=== PATIENT | male | born 1965 | race Caucasian/White ===

== ENCOUNTER 2023-08-16 11:26 | Emergency (ER) | payer OTHER ==
[~2023-08-16] VITALS: Ht 180.3 cm; Wt 68.0 kg
[2023-08-16 11:35] VITALS: BP 136/86; TEMP 98.1
[2023-08-16] MEDS ORDERED: CEPHALEXIN MONOHYDRATE 500 MG CAPSULE PO ONE (11:52)
[2023-08-16] MEDS: CEPHALEXIN MONOHYDRATE 500 MG CAPSULE PO ONE (11:59)
[2023-08-16] MEDS ORDERED: CEPH500C2 PO (12:36)
[2023-08-16 12:41] VITALS: O2SAT 100
== END 2023-08-16 12:42 | disposition home or self-care (01) ==
LOC: ER 11:45
DX: N48.1 Balanitis (principal); E11.9 Type 2 diabetes mellitus without complications

== ENCOUNTER 2023-09-18 10:13 | Inpatient (IN) | payer OTHER ==
[~2023-09-18] VITALS: Ht 180.3 cm; Wt 66.5 kg
[~2023-09-18 10:13] MED LIST: CEPH500C2 PO
[2023-09-18 11:08] LABS: LYMPHOCYTES # (AUTO) 1.2 K/uL (0.8-4.8); MONOCYTES # (AUTO) 0.4 K/uL (0.1-1.30); PLATELET COUNT (AUTO) 131 K/uL (150-450); RED BLOOD CELL COUNT(AUTO) 5.31 MIL/uL (4.5-6.0)
[2023-09-18 11:11] LABS: BASOPHILS # (AUTO) 0.1 K/uL (0.0-0.2); BASOPHILS % (AUTO) 1.1 % (0.0-2.0); EOSINOPHILS % (AUTO) 0.3 % (0.0-6.0); HEMATOCRIT 35 % (39-51); HEMOGLOBIN 10.6 g/dL (13.5-17.5); MEAN CORPUSCULAR HEMOGLOBIN 20 PG (26.0-33.0); MEAN CORPUSCULAR HGB CONC 30 g/dl (31.0-36.0); MEAN CORPUSCULAR VOLUME 65 fL (80-96); MONOCYTES % (AUTO) 8.2 % (2.0-12.0); NEUTROPHILS # (AUTO) 3.1 K/uL (1.8-8.9); NEUTROPHILS % (AUTO) 65.4 % (43.0-81.0); RED CELL DISTRIBUTION WIDTH 15.8 % (11.5-15.0); WHITE BLOOD COUNT (AUTO) 4.7 K/uL (4.3-11.0)
[2023-09-18 11:21] LABS: INR 1.03 (0.91-1.10); PARTIAL THROMBOPLASTIN TIME 20.9 SEC (24.3-34.3); PROTHROMBIN TIME 10.6 SECS (9.2-11.1)
[2023-09-18 11:36] LABS: ALANINE AMINOTRANSFERASE 51 U/L (12-78); ALBUMIN 3.4 g/dL (3.4-5.0); ALKALINE PHOSPHATASE 76 U/L (46-116); ASPARTATE AMINOTRANSFERASE 17 U/L (15-37); BILIRUBIN,DIRECT 0.2 mg/dL (0.0-0.2); BILIRUBIN,TOTAL 0.8 mg/dL (0.2-1.0); CALCIUM, SERUM 8.8 mg/dL (8.5-10.1); CARBON DIOXIDE 24 mmol/L (21-32); CHLORIDE 95 mmol/L (98-107); CREATININE 2.4 mg/dL (0.6-1.3); POTASSIUM 5.6 mmol/L (3.5-5.1); SODIUM SERUM 126 mmol/L (136-145); TOTAL PROTEIN, SERUM 8.4 g/dL (6.4-8.2); UREA NITROGEN, BLOOD 45 mg/dL (7-18)
[2023-09-18] MEDS ORDERED: TRULICITY SQ (11:36)
[2023-09-18] MEDS ORDERED: BICT1TAB PO (11:36)
[2023-09-18] MEDS ORDERED: LISI20TA30 PO (11:36)
[2023-09-18] MEDS ORDERED: ATOR40TA PO (11:36)
[2023-09-18] MEDS ORDERED: ASPI-1420 PO (11:36)
[2023-09-18] MEDS ORDERED: INSU100I30 SQ (11:36)
[2023-09-18 11:37] LABS: GLUCOSE 493 mg/dL (74-106)
[2023-09-18] MEDS ORDERED: CEFTRIAXONE 1GM BAG (ER ONLY) 50 ML IV ONE (11:51)
[2023-09-18] MEDS: CEFTRIAXONE 1GM BAG (ER ONLY) 50 ML IV ONE (12:27)
[2023-09-18] MEDS: IV NS 0.9% 1,000 ML BAG IV ONE (12:27)
[2023-09-18] MEDS ORDERED: DEXTROSE 50%-WATER 50 ML DISP.SYRIN IV PRN (12:30)
[2023-09-18] MEDS ORDERED: ACETAMINOPHEN 325 MG TABLET PO PRN (12:30)
[2023-09-18] MEDS ORDERED: MAG HYDROX/AL HYDROX/SIMETH 30 ML UDC PO PRN (12:30)
[2023-09-18] MEDS ORDERED: Z GUARD REMEDY 4 OZ OINT TP PRN (12:30)
[2023-09-18] MEDS ORDERED: MAGNESIUM HYDROXIDE 30 ML UDC PO PRN (12:30)
[2023-09-18] MEDS ORDERED: ZOLPIDEM TARTRATE 5 MG TABLET PO PRN (12:30)
[2023-09-18] MEDS ORDERED: ONDANSETRON HCL/PF 4 MG/2 ML VIAL IVP PRN (12:30)
[2023-09-18] MEDS: INSULIN REGULAR, HUMAN 100 UNIT/ML 10 ML VIAL IV ONE (12:50)
[2023-09-18] MEDS ORDERED: INSULIN REGULAR, HUMAN 100 UNIT/ML 10 ML VIAL ONE (12:53)
[2023-09-18 13:24] VITALS: BP 144/89; TEMP 98.9; O2SAT 100
[2023-09-18 13:42] LABS: LYMPHOCYTES % (MANUAL) 24 % (16-48); MONOCYTES % (MANUAL) 9 % (0-11.0); NEUTROPHILS % (MANUAL) 67 (42-76); PLATELET ESTIMATE DECREASED
[2023-09-18 16:55] LABS: CALCIUM, SERUM 8.3 mg/dL (8.5-10.1); POTASSIUM 4.9 mmol/L (3.5-5.1)
[2023-09-18] MEDS: INSULIN REGULAR, HUMAN 100 UNIT/ML 3 ML VIAL SQ PRN (17:17)
[2023-09-18] MEDS: BLOOD SUGAR DIAGNOSTIC 1 EACH STRIP IN SCH (17:36)
[2023-09-18 20:00] VITALS: BP 128/73; TEMP 99.1; O2SAT 98
[2023-09-18] MEDS: HEPARIN SODIUM, PORCINE 5000 UNITS/1 ML VIAL SQ SCH (21:46)
[2023-09-18] MEDS: IV 1/2NS 1000 ML 1,000 ML IV PRN (22:32)
[2023-09-19 05:13] LABS: *BASOS 1 % (Not Estab.); *EOS 0 % (Not Estab.); *HCT 34.1 % (37.5-51.0); *HGB 10.2 g/dL (13.0-17.7); *IMMATURE GRANULOCYTES 0 % (Not Estab.); *LYMPHOCYTES 33 % (Not Estab.); *LYMPHS, ABSOLUTE 1.6 x10E3/uL (0.7-3.1); *MCH 20.7 pg (26.6-33.0); *MCHC 29.9 g/dL (31.5-35.7); *MCV 69 fL (79-97); *MONOCYTES 10 % (Not Estab.); *MONOS, ABSOLUTE 0.5 x10E3/uL (0.1-0.9); *NEUTROPHILS 56 % (Not Estab.); *NEUTROPHILS, ABSOLUTE 2.8 x10E3/uL (1.4-7.0); *PLT 124 x10E3/uL (150-450); *RBC 4.92 x10E6/uL (4.14-5.80); *RDW 15.5 % (11.6-15.4); *WBC 4.9 x10E3/uL (3.4-10.8)
[2023-09-19 07:00] VITALS: BP 114/66; TEMP 97.9; O2SAT 100
[2023-09-19 07:31] LABS: BASOPHILS # (AUTO) 0.1 K/uL (0.0-0.2); BASOPHILS % (AUTO) 1.1 % (0.0-2.0); EOSINOPHILS % (AUTO) 0.8 % (0.0-6.0); HEMATOCRIT 29 % (39-51); HEMOGLOBIN 9.3 g/dL (13.5-17.5); LYMPHOCYTES # (AUTO) 2.2 K/uL (0.8-4.8); LYMPHOCYTES % (AUTO) 48.2 % (20.0-44.0); MEAN CORPUSCULAR HEMOGLOBIN 20 PG (26.0-33.0); MEAN CORPUSCULAR HGB CONC 32 g/dl (31.0-36.0); MEAN CORPUSCULAR VOLUME 65 fL (80-96); MONOCYTES # (AUTO) 0.5 K/uL (0.1-1.30); MONOCYTES % (AUTO) 9.9 % (2.0-12.0); NEUTROPHILS # (AUTO) 1.8 K/uL (1.8-8.9); PLATELET COUNT (AUTO) 114 K/uL (150-450); RED BLOOD CELL COUNT(AUTO) 4.54 MIL/uL (4.5-6.0); RED CELL DISTRIBUTION WIDTH 15.5 % (11.5-15.0); WHITE BLOOD COUNT (AUTO) 4.5 K/uL (4.3-11.0)
[2023-09-19 07:57] LABS: ALBUMIN 2.5 g/dL (3.4-5.0); BILIRUBIN,TOTAL 0.6 mg/dL (0.2-1.0); CALCIUM, SERUM 7.9 mg/dL (8.5-10.1); CREATININE 1.5 mg/dL (0.6-1.3); MAGNESIUM 2.1 mg/dL (1.8-2.4); PHOSPHORUS 3.4 mg/dL (2.5-4.9); POTASSIUM 5.1 mmol/L (3.5-5.1); TOTAL PROTEIN, SERUM 6.8 g/dL (6.4-8.2)
[2023-09-19 08:08] LABS: THYROID STIMULATING HORMONE 0.898 uIU/mL (0.358-3.74)
[2023-09-19 08:16] LABS: CREATININE, URINE 131.2 MG/DL (30.0-125.0)
[2023-09-19] MEDS: LISINOPRIL (20MG) 20 MG TABLET PO SCH (09:58)
[2023-09-19] MEDS: PANTOPRAZOLE 40 MG VIAL IV SCH (09:58)
[2023-09-19] MEDS: ATORVASTATIN 40 MG TABLET PO SCH (09:58)
[2023-09-19] MEDS: ASPIRIN EC 81 MG TABLET.DR PO SCH (09:59)
[2023-09-19] MEDS: INSULIN GLARGINE, 100 UNIT/ML CARTRIDGE SQ SCH (10:01)
[2023-09-19 12:10] LABS: *% CD 4 POS. LYMPH 17.5 % (30.8-58.5); *% CD 8 POS. LYMPH 48.4 % (12.0-35.5); *ABSOLUTE CD 4 HELPER 280 /uL (359-1519); *ABSOLUTE CD 8 SUPPRESSOR 774 /uL (109-897); *CD4/CD8 RATIO 0.36 (0.92-3.72)
[2023-09-19] MEDS: IV NS 0.9% 1,000 ML IV ONE (14:18)
[2023-09-19 16:00] VITALS: BP 131/79; TEMP 98.4; O2SAT 99
[2023-09-19 16:11] LABS: EOSINOPHILS % (MANUAL) 1 % (0-4); LYMPHOCYTES % (MANUAL) 49 % (16-48); MONOCYTES % (MANUAL) 9 % (0-11.0); NEUTROPHILS % (MANUAL) 41 (42-76); PLATELET ESTIMATE DECREASED
[2023-09-19 16:12] LABS: ANISOCYTOSIS 1+
[2023-09-19 20:37] VITALS: BP 108/66; TEMP 96.8; O2SAT 100
[2023-09-19 20:37] LABS: APPEARANCE,URINE CLEAR (CLEAR); BILIRUBIN,URINE NEGATIVE (NEGATIVE); BLOOD, URINE TRACE-INTA Ery/uL (NEGATIVE); COLOR,URINE YELLOW (YELLOW); KETONES,URINE NEGATIVE (NEGATIVE); LEUKOCYTE ESTERASE ,URINE NEGATIVE (NEGATIVE); NITRITE, URINE NEGATIVE (NEGATIVE); PROTEIN,URINE TRACE mg/dl (NEGATIVE); UGLUCOSE 3+ mg/dL (NEGATIVE); UROBILINOGEN,URINE 0.2 EU/dL (0.2)
[2023-09-19 20:40] LABS: URINE TOTAL PROTEIN 29.5 mg/dL (0-11.9)
[2023-09-19 21:00] LABS: ADD URINE CULTURE NO; BACTERIA,URINE None seen /HPF (None Seen); RBC,URINE 0-2 /HPF (0-2); SQUAMOUS EPITHELIAL CELL,UR Few /HPF (None Seen); WBC,URINE NONE SEEN /HPF (0-3)
[2023-09-19 21:21] LABS: EOSINOPHIL,URINE None Seen; YEAST,URINE Few /HPF (None Seen)
[2023-09-20 07:00] VITALS: BP 137/85; TEMP 97.4; O2SAT 100
[2023-09-20 07:29] LABS: BASOPHILS # (AUTO) 0.1 K/uL (0.0-0.2); BASOPHILS % (AUTO) 1.3 % (0.0-2.0); EOSINOPHILS % (AUTO) 0.9 % (0.0-6.0); HEMATOCRIT 28 % (39-51); HEMOGLOBIN 8.9 g/dL (13.5-17.5); LYMPHOCYTES % (AUTO) 49.8 % (20.0-44.0); MEAN CORPUSCULAR HEMOGLOBIN 21 PG (26.0-33.0); MEAN CORPUSCULAR HGB CONC 32 g/dl (31.0-36.0); MEAN CORPUSCULAR VOLUME 65 fL (80-96); MONOCYTES # (AUTO) 0.5 K/uL (0.1-1.30); MONOCYTES % (AUTO) 11.9 % (2.0-12.0); NEUTROPHILS # (AUTO) 1.5 K/uL (1.8-8.9); NEUTROPHILS % (AUTO) 36.1 % (43.0-81.0); PLATELET COUNT (AUTO) 107 K/uL (150-450); RED BLOOD CELL COUNT(AUTO) 4.35 MIL/uL (4.5-6.0); RED CELL DISTRIBUTION WIDTH 15.6 % (11.5-15.0); WHITE BLOOD COUNT (AUTO) 4.1 K/uL (4.3-11.0)
[2023-09-20 08:48] LABS: ALBUMIN 2.5 g/dL (3.4-5.0); BILIRUBIN,TOTAL 0.5 mg/dL (0.2-1.0); CALCIUM, SERUM 7.6 mg/dL (8.5-10.1); CREATININE 1.3 mg/dL (0.6-1.3); POTASSIUM 4.3 mmol/L (3.5-5.1); TOTAL PROTEIN, SERUM 6.5 g/dL (6.4-8.2)
[2023-09-20] MEDS: PANTOPRAZOLE 40 MG TABLET.DR PO SCH (08:51)
[2023-09-21 08:10] LABS: PTH, INTACT 33 pg/mL (15-65)
[2023-09-21 10:08] LABS: *SPE A/G RATIO 0.9 (0.7-1.7); *SPE ALBUMIN 2.8 g/dL (2.9-4.4); *SPE ALPHA-1-GLOBULIN 0.2 g/dL (0.0-0.4); *SPE ALPHA-2-GLOBULIN 0.6 g/dL (0.4-1.0); *SPE BETA GLOBULIN 0.8 g/dL (0.7-1.3); *SPE GLOBULIN, TOTAL 3.2 g/dL (2.2-3.9); *SPE M-SPIKE 0.2 g/dL (Not Observed); *SPEGAMMA GLOBULIN 1.6 g/dL (0.4-1.8)
== END 2023-09-20 13:00 | disposition home or self-care (01) | DRG 469 ==
LOC: ER 10:13 → MED 13:08
PROVIDERS: ADMIT Nurse Practitioner Acute Care; ATTEND Nurse Practitioner Acute Care
DX: N17.0 Acute kidney failure with tubular necrosis (principal); R62.7 Adult failure to thrive; D64.9 Anemia, unspecified; E11.65 Type 2 diabetes mellitus with hyperglycemia; E87.5 Hyperkalemia; M89.8X9 Other specified disorders of bone, unspecified site; Z79.4 Long term (current) use of insulin; Z79.899 Other long term (current) drug therapy; Z68.20 Body mass index [BMI] 20.0-20.9, adult; R53.1 Weakness
CPT/HCPCS: 36415; 71045-TC; 76770-TC; 80048-TC; 80053-TC; 80061-TC; 80076-TC; 81001; 82550-TC; 82570-TC; 82962-TC; 83540-TC; 83605-TC; 83735-TC; 83935-TC; 83970; 84100-TC; 84155; 84165; 84300-TC; 84443-TC; 84484-TC; 85025-TC; 85730-TC; 86360; 87040-TC; 87086-TC; 97110-TC; 97116-TC; 97530-TC; A4223; C9113; G0378; J0696; J1644; J1815; J3490; J7030

== ENCOUNTER 2024-01-10 09:37 | Emergency (ER) | payer OTHER ==
[~2024-01-10] VITALS: Ht 180.3 cm; Wt 63.5 kg
[~2024-01-10 09:37] MED LIST changes: +ASPI-1420 PO; +ATOR40TA PO; +BICT1TAB PO; -CEPH500C2 PO; +INSU100I30 SQ; +LISI20TA30 PO; +TRULICITY SQ
[2024-01-10] MEDS ORDERED: INSULIN REGULAR, HUMAN 100 UNIT/ML 10 ML VIAL ONE (09:57)
[2024-01-10] MEDS: IV NS 0.9% 1,000 ML BAG IV ONE (09:59)
[2024-01-10] MEDS: INSULIN REGULAR, HUMAN 100 UNIT/ML 10 ML VIAL SQ ONE (10:02)
[2024-01-10 10:08] LABS: BASOPHILS % (AUTO) 0.7 % (0.0-2.0); EOSINOPHILS % (AUTO) 0.6 % (0.0-6.0); HEMATOCRIT 32 % (39-51); HEMOGLOBIN 9.8 g/dL (13.5-17.5); LYMPHOCYTES # (AUTO) 1.6 K/uL (0.8-4.8); LYMPHOCYTES % (AUTO) 36.3 % (20.0-44.0); MEAN CORPUSCULAR HEMOGLOBIN 20 PG (26.0-33.0); MEAN CORPUSCULAR HGB CONC 31 g/dl (31.0-36.0); MEAN CORPUSCULAR VOLUME 66 fL (80-96); MONOCYTES # (AUTO) 0.5 K/uL (0.1-1.30); MONOCYTES % (AUTO) 11.5 % (2.0-12.0); NEUTROPHILS # (AUTO) 2.2 K/uL (1.8-8.9); NEUTROPHILS % (AUTO) 50.9 % (43.0-81.0); PLATELET COUNT (AUTO) 145 K/uL (150-450); RED BLOOD CELL COUNT(AUTO) 4.85 MIL/uL (4.5-6.0); RED CELL DISTRIBUTION WIDTH 15.6 % (11.5-15.0); WHITE BLOOD COUNT (AUTO) 4.3 K/uL (4.3-11.0)
[2024-01-10 10:20] LABS: CALCIUM, SERUM 9.1 mg/dL (8.5-10.1); CREATININE 1.6 mg/dL (0.6-1.3); POTASSIUM 4.8 mmol/L (3.5-5.1)
[2024-01-10 10:27] LABS: SITE, VBG Other; VBG BASE EXCESS -3.6 mmol/L (-3-3); VBG COHb 0.3 %; VBG HCO3 21.9 mmol/L (22-27); VBG MetHb 0.2 %; VBG OXYGEN SATURATION 55.3 %; VBG PCO2 41.4 mmHg (40-52); VBG PH 7.341 (7.31-7.41); VBG PO2 31.4 mmHg (30-50); VBG TOTAL HEMOGLOBIN 10.6 G/dL (13.5-18.0); VENT MODE, VBG ROOM AIR
[2024-01-10 13:02] VITALS: BP 118/82; TEMP 97.8; O2SAT 98
[2024-01-10 13:19] LABS: APPEARANCE,URINE CLEAR (CLEAR); BILIRUBIN,URINE NEGATIVE (NEGATIVE); BLOOD, URINE 1+ Ery/uL (NEGATIVE); COLOR,URINE YELLOW (YELLOW); KETONES,URINE NEGATIVE (NEGATIVE); LEUKOCYTE ESTERASE ,URINE NEGATIVE (NEGATIVE); NITRITE, URINE NEGATIVE (NEGATIVE); PROTEIN,URINE 1+ mg/dl (NEGATIVE); UGLUCOSE 3+ mg/dL (NEGATIVE); UROBILINOGEN,URINE 0.2 EU/dL (0.2)
[2024-01-10 13:24] LABS: ADD URINE CULTURE NO; BACTERIA,URINE Rare /HPF (None Seen); SQUAMOUS EPITHELIAL CELL,UR Few /HPF (None Seen); WBC,URINE 0-2 /HPF (0-3)
== END 2024-01-10 13:03 | disposition home or self-care (01) ==
LOC: ER 09:39
DX: E11.65 Type 2 diabetes mellitus with hyperglycemia (principal); Z91.148 Patient's other noncompliance with medication regimen for other reason; I10 Essential (primary) hypertension; E78.5 Hyperlipidemia, unspecified; Z79.82 Long term (current) use of aspirin; Z79.4 Long term (current) use of insulin; Z79.899 Other long term (current) drug therapy
CPT/HCPCS: 99285; 96360; 71045; 93005; 82803 ×2; 85025; 80048; 82010; 81001; 36415; 82962 ×4; 96372; J1815; J7030